=== PATIENT | female | born 2000 | race Caucasian/White ===

== ENCOUNTER 2024-08-19 18:46 | Observation (INO) | payer SELFPAY ==
[2024-08-19 12:52] VITALS: BP 131/90
[2024-08-19 13:05] LABS: % Basophils 0.9 % (0-2); % Eosinophils 1.2 % (0-6); % Immature Granulocytes 0.3 % (0-0.5); % Lymphocytes 19.7 % (20.5-51.1); % Neutrophils 71.9 % (42.2-75.2); Absolute Basophils 0.1 10^3/uL (0-0.2); Absolute Eosinophils 0.1 10^3/uL (0-0.7); Absolute Lymphocytes 1.3 10^3/uL (1.2-3.4); Absolute Monocytes 0.4 10^3/uL (0.1-0.6); Absolute Neutrophils 4.9 10^3/uL (1.4-6.5); Hematocrit 40.7 % (37.0-47.0); Hemoglobin 14.2 g/dL (12.0-16.0); Mean Corp Hgb Conc. 34.9 g/dL (33.0-37.0); Mean Corpuscular Hgb 29.8 pg (27.0-31.0); Mean Corpuscular Volume 85.5 fL (81.0-99.0); Mean Platelet Volume 9.2 fL (7.4-10.4); Nucleated Red Blood Cells % 0 %; Platelet Count 279 10^3/uL (130-400); Red Blood Cell Count 4.76 10^6/uL (4.20-5.40); Red Cell Dist. Width 11.8 % (11.5-14.5); White Blood Cell Count 6.8 10^3/uL (4.8-10.8)
[2024-08-19 13:16] LABS: APTT 28.7 Sec (23.4-35.0); INR 1.06; PT 14.1 Sec (11.4-14.6)
[2024-08-19 13:36] LABS: Troponin I < 0.012 ng/ml
[2024-08-19 13:53] LABS: AST (SGOT) 22 U/L (14-36); Albumin 4.8 g/dl (3.5-5.0); Alkaline Phosphatase 61 U/L (38-126); Blood Urea Nitrogen 12 mg/dl (7-17); Carbon Dioxide 24 mmol/L (22-30); Chloride 101 mmol/L (98-107); Glucose 108 mg/dl (70-99); Total Bilirubin 0.9 mg/dl (0.2-1.3); Total Protein 7.7 g/dl (6.3-8.2); eGFR > 60.00
[2024-08-19 13:58] LABS: HCG, Serum Qualitative Screen Negative
[2024-08-19 14:06] LABS: ALT (SGPT) 17 U/L (0-35); Calcium 10.1 mg/dl (8.4-10.2); Potassium 3.8 mmol/L (3.5-5.1); Sodium 136 mmol/L (135-145)
[2024-08-19 15:24] VITALS: BP 127/86; BMI 34.6
--- NOTE | 2024-08-19 16:03 | ED.GENMED ---
History of Present Illness
General
Chief Complaint: Fainting/Passed Out
Source: patient
Exam Limitations: none
Time Seen by Provider: 08/19/24 15:15
Nursing documentation reviewed up to this point in time: agreed with
History of Present Illness
History of Present Illness:
23-year-old female presenting to the emergency department today with concerns of an episode prior to arrival this morning when she got out of her car going to work. She blacked out without prodrome woke up on the ground felt very confused for
multiple minutes. This was not witnessed denies any obvious trauma but is unsure. Denies any urinary issues or urinating on herself denies any biting of her tongue. Denies any history of seizures. Denies any ongoing symptoms at this point.
Review of Systems
Review of Systems
Allergies reviewed?: Yes
All Other Systems: ROS reviewed and negative except as documented in HPI and ROS
Phy Exam
Physical Exam
Physical Exam:
GENERAL: Alert , in no apparent distress
EYE: pupils equal and reactive
NECK: Supple, no significant adenopathy.
ENT: o/p clr, mmm.
CARDIAC: Regular rate and rhythm .
LUNGS: Clear breath sounds bilaterally, no acute respiratory distress, no wheezes/rales/rhonchi
ABDOMEN: Soft, without focal tenderness, no r/g, no cvat
NEUROLOGICAL: Alert and oriented, no focal neuro deficits
SKIN: Warm and dry, skin intact.
MUSCULOSKELETAL: No edema, well perfused.
PSYCH: Normal and appropriate interaction.
Course
Orders/Labs/Results
Orders:
Orders
08/19/24 12:55
Electrocardiogram (*1) Urgent
Reason for Study: Syncope
EKG- Treatment ONCE
Test Result ONCE
08/19/24 12:58
Complete Blood Count/With Diff Urgent
Comprehensive Metabolic Panel Urgent
HCG, Serum Qualitative Screen Urgent
Protime/PTT Urgent
Troponin I Urgent
08/19/24 15:42
CT Head W/o Iv Contrast Urgent
Comment:
Reason For Exam: loc, possible head strike
08/19/24 15:53
Chest [CR Chest - 2 Views ] Urgent
Comment:
Reason For Exam: cp
08/19/24 18:23
EEG Routine Routine
Reason for Exam: ? CPS
Neurology Consult:: DR. HART
MR Brain W/o & With Contrast Routine
Comment:
Reason For Exam: seizure
Recent pill cam endoscopy?: No
08/19/24 18:28
Admit/Transfer Patient As Directed
Co-Sign Provider:
Level of Care: Observation services
Assign to:: Telemetry
Physician / Group: humaira
Diagnosis: syncope
Reason for Telemetry: Arrhythmia
Date to Stop Telemetry: 08/22/24
Time to Stop Telemetry: 11:00
Code Status As Directed
Resuscitation Status: Full Code
PRN Pain Medication Management As Directed
May give lesser potent ordered pain med per pt: Yes
preference::
Protocol:: Medication orders for pain may be administered in a
manner that supports deferring to patient preference
when the pt is:
- Requesting an ordered lesser potent pain medication.
Least to most potent pain medications are defined
as: acetaminophen < NSAID < tramadol < opioids
(morphine, oxycodone, hydromorphone).
- Requesting a lesser dose of the same medication IF
ORDERED.
- Requesting a less intrusive route of administration
if both routes are prescribed by the provider (PO <
IV).
08/22/24 11:00
DC Protocol for Telemetry ONCE
Abnormal Lab Results
08/19/24
12:58
Lymphocytes % 19.7 L %
(20.5-51.1)
Glucose 108 H mg/dl
(70-99)
08/19/24 12:58
08/19/24 12:58
Vital Signs
Initial and Last Documented VS:
Initial Vital Signs
Temp Pulse Resp BP Pulse Ox
99.7 F 103 18 131/90 100
08/19/24 12:52 08/19/24 12:52 08/19/24 12:52 08/19/24 12:52 08/19/24 12:52
Last Documented Vital Signs
Temp Pulse Resp BP Pulse Ox
99.7 F 95 18 127/86 99
08/19/24 12:52 08/19/24 15:24 08/19/24 15:24 08/19/24 15:24 08/19/24 15:24
MDM/Problems Addressed
MDM/Problems Addressed:
23-year-old female presenting to the emergency department today with concerns of intermittent headache chest pain upper back pain over the past 6 months today she additionally had an episode where she got of her car dropped to the ground but has no
memory of this woke up on the ground was confused for a few minutes. This was not witnessed. Denies other additional symptoms or obvious trauma. Workup here without emergent findings. Case was discussed with neurology considering the story seems
consistent with potential seizure. Neurology saw the patient recommending admission for MRI and EEG. Stable throughout ER stay.
*Critical Care Note
Total Time (30-74mins, 75-104mins- exclusive of procedures): Not Applicable
ED Attending Note
-
Portions of this chart may have been created with voice recognition software.� Occasional wrong word or��sound alike� substitutions may have occurred due to the inherent limitations of voice recognition software.
Discharge Plan
Departure
Patient Disposition: Admit
Date of Disposition: 08/19/24
Time of Disposition: 18:34
Admit to: Telemetry
Admit to doctor: Humaira
Presentation/result/management discussed w/ accepting MD/DO: Hospitalist
Patient with high blood pressure during this ER visit?: No
Condition: Good
Covid-19: Not Applicable
Discharge Problem:
Seizure-like activity
Referrals:
Isidoro Welsh, DO [Family Provider] -
Interventions
Interventions:
*Risk Screen - Suicide Last Done: 08/19/24 12:52
*General Assessment Last Done: 08/19/24 12:52
*Neglect/Abuse Screening Last Done: 08/19/24 12:52
ED- Fall Risk Assessment Last Done: 08/19/24 15:31
*ED COVID-19 Vaccine History Last Done: 08/19/24 12:52
ED- Cardiac Assessment Last Done: 08/19/24 15:31
ED- Neurological Assessment Last Done: 08/19/24 15:31
Discharge Date and Time
Print Language: YI
--- NOTE | 2024-08-19 18:19 | CON.NEURO ---
Neuro Assessment/Plan
Assessment
Head CT imgs rev'd, normal
good story for a first time seizure, with description of prior simple partial sz
Plan
admit obs brain mri with and w/o contrast
routine EEG
no rx for now
will determine driving and [facility] the studies
discussed with patient her risks of further seizures 40%; if the studies are normal the risk drops to 20%, and if abnormal then the risks could be higher and we will discuss treatment
Consultation
Order
Date of Consultation: 08/19/24
Requesting Provider: Boone Sawant
Reason for Consult: Loss of consciousness
Subjective/Objective
Subjective Data
Date of Service: August 19, 2024
23 year old right handed woman with episode of LOC. she drove to work, and in the parking lot had a sudden episode of LOC. unsure of duration. was post ictal, did not bite tongue, no incontinence
describing prior episodes almost daily with blurry vision --> tingling in right upper extremity spreading through body --> weakness, lasting 1-2 minutes.
having headaches lasting hours.
Objective Data
Vital Signs
Temp Pulse Resp BP Pulse Ox
37.6 C 95 18 127/86 99
08/19/24 12:52 08/19/24 15:24 08/19/24 15:24 08/19/24 15:24 08/19/24 15:24
Lab Results
08/19/24 12:58
08/19/24 12:58
PT 14.1 Sec (11.4-14.6) 08/19/24 12:58
PT Cancelled 08/19/24 12:58
INR 1.06 08/19/24 12:58
INR Cancelled 08/19/24 12:58
APTT 28.7 Sec (23.4-35.0) 08/19/24 12:58
APTT Cancelled 08/19/24 12:58
Sodium 136 mmol/L (135-145) 08/19/24 12:58
Potassium 3.8 mmol/L (3.5-5.1) 08/19/24 12:58
BUN 12 mg/dl (7-17) 08/19/24 12:58
Glucose 108 mg/dl (70-99) H 08/19/24 12:58
Calcium 10.1 mg/dl (8.4-10.2) 08/19/24 12:58
Patient Allergies
No Known Allergies Allergy (Unverified 08/19/24 12:55)
Physical Exam
-
AAOx3, speech clear language intact
VFF, EOMI, face symmetric
full strength b/l UE/LE
sensation intact to touch
DTRs normal
--- NOTE | 2024-08-19 18:34 | HPS.HSE ---
Family Physician
-
Family Physician: Isidoro Welsh
Chief Complaint
-
syncope
History of Present Illness
23-year-old female past medical history of untreated migraines, chronic intermittent shoulder/back/chest pain presenting with syncopal episode.
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 She got out of the car and had a syncopal episode. She does not remember feeling dizzy or having any symptoms prior to passing out. She woke up on the ground.
She called her father who brought her to the emergency room. She denies any history of seizures or similar episodes of syncope. He denies any blurry vision, numbness or tingling, focal weakness, aura symptoms. Denies nausea or vomiting.
She has daily bilateral headaches and takes Tylenol as needed for these headaches. She saw an eye doctor who recommended she see neurologist for treatment of migraines. She has an appointment with neurology coming up.
She periodically gets pain in her left shoulder/chest and back which usually resolves spontaneously. She was having the symptoms here today.
No family history of neurological symptoms.
She smokes 3 cigarettes a day. She drinks alcohol occasionally. Denies drugs.
Medical History
Past Medical History
Past Medical History: Reports Other (untreated migraines, chronic intermittent shoulder/back/chest pain)
Past Surgical History: Reports None
Social History
Tobacco: Non-smoker
Alcohol: Daily
Drug: None
Family History
Family History: Not pertinent
Allergies / Home Medications
Allergies reflects when Allergies were last updated in [employer].
Home Medications with original date entered in [employer]
Allergy/Medication List:
Allergies
Allergy/AdvReac Type Severity Reaction Status Date / Time
No Known Allergies Allergy Unverified 08/19/24 12:55
Review of Systems
-
History Source: Patient
A 12 point ROS was completed and negative except as noted: Yes
Constitutional: Reports No Symptoms
EENT: Reports No Symptoms
Respiratory: Reports No Symptoms
Cardiac: Reports No Symptoms
Abdomen/GI: Reports No Symptoms
: Reports No Symptoms
Musculoskeletal: Reports No Symptoms
Skin: Reports No Symptoms
Neurological: Reports No Symptoms
Endocrine: Reports No Symptoms
Hematologic/Lymphatic: Reports No Symptoms
Psych: Reports No Symptoms
Physical Exam
Vital Signs
Vital Signs
Temp Pulse Resp BP Pulse Ox
99.7 F 95 18 127/86 99
08/19/24 12:52 08/19/24 15:24 08/19/24 15:24 08/19/24 15:24 08/19/24 15:24
Physical Exam
General: Well Developed, Well Nourished and No Apparent Distress
HEENT: NormoCephalic, Moist mucous membranes and Atraumatic
Respiratory: Clear
Cardiac: S1/S2 and Regular Rhythm; No Murmur or Rub
GI: Soft, Non Tender, Non Distended and Normal Bowel Sounds; No Organomegaly
Rectal: Deferred by Provider
Musculoskeletal: No Clubbing, No Cyanosis and No Edema
Skin: No Rash
Neuro: Nonfocal/grossly intact
Laboratory Results
-
08/19/24 12:58
08/19/24 12:58
Laboratory Results
PT 14.1 Sec (11.4-14.6) 08/19/24 12:58
PT Cancelled 08/19/24 12:58
INR 1.06 08/19/24 12:58
INR Cancelled 08/19/24 12:58
APTT 28.7 Sec (23.4-35.0) 08/19/24 12:58
APTT Cancelled 08/19/24 12:58
Total Bilirubin 0.9 mg/dl (0.2-1.3) 08/19/24 12:58
AST 22 U/L (14-36) 08/19/24 12:58
ALT 17 U/L (0-35) 08/19/24 12:58
Alkaline Phosphatase 61 U/L (38-126) 08/19/24 12:58
Troponin I < 0.012 ng/ml 08/19/24 12:58
Data Reviewed
-
Lab Data: Labs Reviewed by me
Old Records: Reviewed
Impression/Plan
-
IMPRESSION:
PLAN:
# Syncopal episode likely seizure versus less likely cardiac arrhythmia
-EKG shows normal sinus rhythm, low voltage QRS,
-Telemetry monitoring
-CT head shows no acute abnormality
-Neurology consulted
-Neurology recommending EEG and MRI
# Daily migraines with current migraine
-Not on preventative medication
-Tylenol, ibuprofen
Chronic intermittent shoulder/back/chest pain
-Tylenol/ibuprofen
Daily smoker
Full code
DVT prophylaxis�heparin
Regular diet
[2024-08-19 18:41] VITALS: BP 117/69
[2024-08-19] MEDS: MOTRIN 400 MG PO (18:55)
[2024-08-19] MEDS: TYLENOL 650 MG PO (18:55)
[2024-08-19 20:16] VITALS: BP 108/70
[2024-08-19] MEDS: HEPARIN SC (20:33)
[2024-08-19 23:17] VITALS: BP 100/56
[2024-08-20 01:06] VITALS: BP 97/54
[2024-08-20 04:46] VITALS: BP 107/59
[2024-08-20 05:22] LABS: % Basophils 1.2 % (0-2); % Eosinophils 3.8 % (0-6); % Immature Granulocytes 0.3 % (0-0.5); % Lymphocytes 30.5 % (20.5-51.1); % Monocytes 8.7 % (1.7-9.3); % Neutrophils 55.5 % (42.2-75.2); Absolute Basophils 0.1 10^3/uL (0-0.2); Absolute Eosinophils 0.2 10^3/uL (0-0.7); Absolute Lymphocytes 1.8 10^3/uL (1.2-3.4); Absolute Monocytes 0.5 10^3/uL (0.1-0.6); Absolute Neutrophils 3.2 10^3/uL (1.4-6.5); Hematocrit 39.4 % (37.0-47.0); Hemoglobin 13.8 g/dL (12.0-16.0); Mean Corpuscular Hgb 29.8 pg (27.0-31.0); Mean Corpuscular Volume 85.1 fL (81.0-99.0); Mean Platelet Volume 9.6 fL (7.4-10.4); Nucleated Red Blood Cells % 0 %; Platelet Count 253 10^3/uL (130-400); Red Blood Cell Count 4.63 10^6/uL (4.20-5.40); Red Cell Dist. Width 11.8 % (11.5-14.5); White Blood Cell Count 5.8 10^3/uL (4.8-10.8)
[2024-08-20 05:34] LABS: ALT (SGPT) 16 U/L (0-35); AST (SGOT) 25 U/L (14-36); Albumin 4.2 g/dl (3.5-5.0); Alkaline Phosphatase 45 U/L (38-126); Blood Urea Nitrogen 12 mg/dl (7-17); Calcium 9.6 mg/dl (8.4-10.2); Carbon Dioxide 23 mmol/L (22-30); Chloride 105 mmol/L (98-107); Estimated Creatinine Clearance 113 ml/min; Glucose 86 mg/dl (70-99); Sodium 138 mmol/L (135-145); Total Protein 6.9 g/dl (6.3-8.2); eGFR > 60.00
[2024-08-20] MEDS: HEPARIN 5000 UNITS SC (08:05)
[2024-08-20 08:10] VITALS: BP 108/65
--- NOTE | 2024-08-20 10:00 | CM ---
Addendum entered by Elsa Miles RN 08/20/24 14:35:
Cm met with patient and family in room. Patient stated that she recently lost her Medicaid due to being income over limit. CM discussed HRSI process and encourage patient to reach out to [employer] to discuss payment concerns. CM
provided patient with [facility] and [facility] card to assist with medication costs.
CM will remain available as needed.
Original Note:
CM met with patient in room. Patient confirmed demographics. Patient stated that she does not have insurance at this time. Patient stated that she is active with her PCP. Patient does not have a history of VN, SNF or DME>
PLAN: Home no needs.
[2024-08-20 11:54] VITALS: BP 121/76
--- NOTE | 2024-08-20 12:19 | EEG.RPT ---
Electroencephalogram Report
Recording
Date of EE08/20/24
Type of EEG: Routine
Length of EEG recordin mins
Done with Video Recording: Yes
Patient Status: Inpatient
Recording Conditions: Awake and Drowsy
Hyperventilation Performed: Yes
Photic Stimulation Performed: Yes
Report
Background: posterior dominant rhythm, 9 Hz, symmetric, with spontaneous variability and reactivity
Sleep: none
Focal/rhythmic/epileptiform: none
Seizures: none
Hyperventilation: symmetric slowing
Photic change: no background change
Impression: normal
Clinical correlation: a normal EEG does not rule out epilepsy
--- NOTE | 2024-08-20 12:39 | W.PN.NEURO.1 ---
Today's Communication / Plan
-
dc home
ok to drive
Rx zonisamide 100 mg capsule #90 sig 1 capsule daily (nightly) x1 week, 2 cap daily x1 week, then 3 cap daily
Neuro Assessment/Plan
Assessment
Head CT imgs rev'd, normal
Brain MRI imgs rev'd, normal
EEG normal
good story for a first time seizure, with description of prior simple partial sz
Plan
first time seizure with normal MRI and EEG, risk of further seizures is 20%, ok to drive, form [address] sent
no rx would be indicated, except that she also has episodes of simple partial sz 'only an aura' and they are bothersome, she would like rx to decrease their frequency
discussed multiple medications, decision for zonisamide 100 mg capsule #90 sig 1 capsule daily (nightly) x1 week, 2 cap daily x1 week, then 3 cap daily; ok to stop titration early if she achieves satisfactory symptom control given that she does not
have health insurance.
discussed zonisamide do, no marine oil terminal superintendent toxicity, not teratogenic, sulfa, may improve headaches, side effects of worsening kidney stones and glaucoma in those susceptible.
Subjective/Objective
Subjective Data
Date of Service: August 20, 2024
no more seizures. feeling well.
Objective Data
Vital Signs
Temp Pulse Resp BP Pulse Ox
36.8 C 77 16 121/76 99
08/20/24 11:54 08/20/24 11:54 08/20/24 11:54 08/20/24 11:54 08/20/24 11:54
Lab Results
08/20/24 04:48
08/20/24 04:48
PT 14.1 Sec (11.4-14.6) 08/19/24 12:58
PT Cancelled 08/19/24 12:58
INR 1.06 08/19/24 12:58
INR Cancelled 08/19/24 12:58
APTT 28.7 Sec (23.4-35.0) 08/19/24 12:58
APTT Cancelled 08/19/24 12:58
Sodium 138 mmol/L (135-145) 08/20/24 04:48
Potassium 4.0 mmol/L (3.5-5.1) 08/20/24 04:48
BUN 12 mg/dl (7-17) 08/20/24 04:48
Glucose 86 mg/dl (70-99) 08/20/24 04:48
Calcium 9.6 mg/dl (8.4-10.2) 08/20/24 04:48
Patient Allergies
No Known Allergies Allergy (Unverified 08/19/24 12:55)
Physical Exam
-
AAOx3, speech clear language intact
VFF, EOMI, face symmetric
full strength b/l UE/LE
sensation intact to touch
DTRs normal
--- NOTE | 2024-08-20 15:32 | W.PN.HOSP.TC ---
Today's Communication/Plan
-
Discharge home
Assessment / Plan
Assessment / Plan
NAD
Scleral Anicteric
MMM
No JVD
CTABL
RRR, S1/S2
Soft, NT, ND, BS+
Warm, Dry
AAOx3
Calm
Syncope concern for seizure-like activity
MRI completed without acute process
EEG without evidence of seizure/epileptiform activity
Neurology evaluated cleared to drive sent DMV paperwork prior neurologist over [place] [facility]
Discharge home per neurology recommendations with zonisamide 100 mg daily x 1 week, 200 mg daily x 1 week, 300 mg daily thereafter
Anticipated Discharge: Today
Subjective/Interval History
-
Date of Service: August 20, 2024
Seen and examined. No new complaints. No acute overnight event
Objective Data
-
Labs:
Laboratory Results
08/20/24
04:48
WBC 5.8
Hgb 13.8
Hct 39.4
Plt Count 253
Sodium 138
Potassium 4.0
Chloride 105
Carbon Dioxide 23
BUN 12
Creatinine 0.8
Glucose 86
Calcium 9.6
Total Bilirubin 1.0
AST 25
ALT 16
Alkaline Phosphatase 45
Vital Signs:
Vital Signs
Temp Pulse Resp BP Pulse Ox
98.2 F 77 16 121/76 99
08/20/24 11:54 08/20/24 11:54 08/20/24 11:54 08/20/24 11:54 08/20/24 11:54
--- NOTE | 2024-08-20 15:34 | W.DCSUMMARY ---
Discharge Summary
Discharge Data
Date of Admission: 08/19/24
Date of Discharge: 08/20/24
-
Pending Results: No
Hospital Course
23 Female past medical history of untreated migraines, chronic intermittent shoulder/back/chest pain
Presented for syncope as getting out of the car. Evaluated by neurology recommended EEG and MRI. Both EEG and MRI were normal. Neuro okay to continue to drive. However due to a history of simple partial seizures recommend zonisamide 100 mg
capsule daily x 1 week, 2 capsules daily x 1 week then 3 capsules daily. Will need continued outpatient neurology follow-up.
CT Brain
IMPRESSION:
No acute intracranial abnormality noted.
MRI Brain
IMPRESSION:
No acute intracranial abnormality noted.
Low-lying cerebellar tonsils with approximately 3 mm inferior descent.
EEG
Impression: normal
Clinical correlation: a normal EEG does not rule out epilepsy
Discharge Plan
-
Patient Disposition: Home (Routine Discharge)
Discharge Diagnosis/Procedures: Syncope, ?seizure
Condition: Good
Diet: As tolerated
Activity: As tolerated
Activity Restrictions/Additional Instructions:
Presented for syncope as getting out of the car. Evaluated by neurology recommended EEG and MRI. Both EEG and MRI were normal. Neuro okay to continue to drive. However due to a history of simple partial seizures recommend zonisamide 100 mg
capsule daily x 1 week, 2 capsules daily x 1 week then 3 capsules daily. Will need continued outpatient neurology follow-up.
CT Brain
IMPRESSION:
No acute intracranial abnormality noted.
MRI Brain
IMPRESSION:
No acute intracranial abnormality noted.
Low-lying cerebellar tonsils with approximately 3 mm inferior descent.
EEG
Impression: normal
Clinical correlation: a normal EEG does not rule out epilepsy
Instructions: Seizures in adults - ED discharge instructions
Referrals:
Bear Crowder MD [Active] - in one to two weeks
Sabalaske,Isidoro E., DO [Family Provider] -
Prescriptions:
New
zonisamide 100 mg capsule
100 mg PO DAILY Qty: 90 0RF
Rx Instructions:
1 capsule daily x1 week, 2 capsule daily x1 week, then 3 capsules daily
Discharge Orders:
Discharge Patient (As Directed); Ordered 08/20/24
Ordered By: Jelani Walker
Discharge Date and Time
Print Language: CROATIAN
[2024-08-20 16:04] VITALS: BP 116/70
== END 2024-08-20 16:05 | disposition home or self-care (01) ==
LOC: ED 18:46
PROVIDERS: Emergency Medicine; ADMITTING PHYSICIAN Hospitalist; ATTENDING PHYSICIAN Hospitalist; CONSULT PHYSICIAN Psychiatry & Neurology Clinical Neurophysiology; EMERGENCY PHYSICIAN Student in an Organized Health Care Education/Training Program; FAMILY PHYSICIAN Family Medicine
DX: R55 Syncope and collapse (principal); G43.909 Migraine, unspecified, not intractable, without status migrainosus; R07.9 Chest pain, unspecified; M25.512 Pain in left shoulder; Z59.71 Insufficient health insurance coverage; G40.109 Localization-related (focal) (partial) symptomatic epilepsy and epileptic syndromes with simple partial seizures, not intractable, without status epilepticus
CPT/HCPCS: 70450; 70553; 71046; 80053; 84484; 84703; 85025; 85610; 85730; 93005; 95816; A9575; G0378